=== PATIENT | male | born 1985 | race Caucasian/White ===

== ENCOUNTER 2018-01-30 05:43 | Day surgery (SDC) | payer BC ==
[2018-01-30] MEDS ORDERED: MIDAZOLAM 1 MG/ML 2 ML INJ (07:15)
[2018-01-30] MEDS ORDERED: PROPOFOL 60 ML (07:33)
[2018-01-30] MEDS ORDERED: CEFAZOLIN 1 GM INJ ×2 (07:33→10:10)
[2018-01-30] MEDS ORDERED: LIDOCAINE 2% (SDV) 5 ML INJ (07:33)
[2018-01-30] MEDS ORDERED: ONDANSETRON 4 MG INJ (07:43)
[2018-01-30] MEDS ORDERED: FAMOTIDINE 20 MG INJ (07:43)
[2018-01-30] MEDS ORDERED: DEXAMETHASONE 4 MG/ML 1 ML INJ (07:43)
[2018-01-30] MEDS ORDERED: HYDROmorphONE 2 MG/ML SYG (08:07)
[2018-01-30] MEDS ORDERED: LABETALOL HCL 20MG INJ (08:14)
[2018-01-30] MEDS: ROPIVACAINE 0.5 % 30 ML VIAL (09:35)
[2018-01-30] MEDS ORDERED: EPHEDrine SULFATE 50 MG/5 ML SYG (10:14)
[2018-01-30] MEDS ORDERED: SOD CHLORIDE 0.9% 1,000 ML IV (10:42)
[2018-01-30] MEDS ORDERED: FENTAnyl 50 MCG/ML VIAL IV ×3 (11:00)
[2018-01-30] MEDS ORDERED: OXYCODONE/ACETAMINOPHEN (5/325) TAB PO ×4 (11:00)
[2018-01-30] MEDS ORDERED: ONDANSETRON 4 MG INJ IV ×2 (11:00)
[2018-01-30] MEDS ORDERED: EPHEDrine SULFATE 50 MG/5 ML SYG IV (11:00)
[2018-01-30] MEDS ORDERED: HYDROmorphONE (0.2 MG/ML) 10ML SYG IV ×3 (11:00)
[2018-01-30] MEDS ORDERED: morphine 2 MG INJ IV (11:00)
[2018-01-30] MEDS ORDERED: LABETALOL HCL 20MG INJ IV (11:00)
[2018-01-30] MEDS ORDERED: hydrALAzine 20 MG INJ IV (11:00)
[2018-01-30] MEDS ORDERED: PROCHLORPERAZINE 10 MG INJ IV (11:00)
[2018-01-30] MEDS: MEPERIDINE 25 MG INJ IV (11:07)
[2018-01-30] MEDS: DIPHENHYDRAMINE 50 MG INJ IV ×2 (11:08→12:27)
== END 2018-01-30 12:45 | disposition home or self-care (01) ==
LOC: SDS 05:43
DX: S83.231D Complex tear of medial meniscus, current injury, right knee, subsequent encounter (principal); S83.271D Complex tear of lateral meniscus, current injury, right knee, subsequent encounter; X58.XXXD Exposure to other specified factors, subsequent encounter; S83.511D Sprain of anterior cruciate ligament of right knee, subsequent encounter; M94.261 Chondromalacia, right knee
CPT/HCPCS: 29880